=== PATIENT | male | born 1985 | race Caucasian/White ===

== ENCOUNTER 2017-02-18 13:13 | Emergency (ER) | payer SELFPAY ==
[~2017-02-18 13:13] MED LIST: NO MEDS; NORCO 5/325 TAB1 TAB PO; PERCOCET 5/3251 TAB PO; ZOFRAN ODT4 MG/UDTAB PO
[2017-02-18] MEDS ORDERED: NO HOME MEDICATION XX (13:29)
[2017-02-18] MEDS ORDERED: ZITHROMAX250 M1 PO (13:44)
[2017-02-18] MEDS ORDERED: PREDNISONE20 M1 PO (13:44)
[2017-02-18] MEDS ORDERED: PROMETHAZINE-C118 ML PO (13:46)
== END 2017-02-18 14:11 ==
LOC: EDMED 13:13
DX: J40 Bronchitis, not specified as acute or chronic (principal); Z90.49 Acquired absence of other specified parts of digestive tract; F17.210 Nicotine dependence, cigarettes, uncomplicated